=== PATIENT | female | born 1970 | race Caucasian/White ===

== ENCOUNTER 2019-08-11 15:53 | Observation (INO) ==
[2019-08-11] MEDS ORDERED: 0.9 % Sodium Chloride 1,000 ML IVC ONE (16:25)
[2019-08-11] MEDS ORDERED: Ondansetron 4 MG/2 ML VIAL IVP ONE (16:25)
[2019-08-11] MEDS ORDERED: Isovue-370 500 ML BOTTLE IVP ONE (16:36)
[2019-08-11 17:04] LABS: Basophils % 0.3 %; Eosinophils # 0.1 K/mcL (0.0-0.6); Eosinophils % 1.7 %; Hemoglobin 12.6 g/dL (11.5-15.4); Immature Granulocytes % 0.6 % (0-4); Lymphocytes # 1.7 K/mcL (0.6-4.6); Lymphocytes % 25.8 %; Mean Corpuscular HGB Conc 34.1 g/dL (31.6-35.5); Mean Corpuscular Hemoglobin 29.4 pg (28.0-33.3); Mean Corpuscular Volume 86.2 fL (83.0-100.0); Mean Platelet Volume 9.7 fL (9.4-12.4); Monocytes # 0.5 K/mcL (0.0-1.3); Neutrophils # 4.1 K/mcL (1.6-8.9); Platelet Count 261 K/mcL (140-400); Red Blood Count 4.29 M/mcL (3.82-4.97); Red Cell Distribution Width 14.6 % (11.5-14.5); Segmented Neutrophils % 63.6 %; White Blood Count 6.5 K/mcL (4.3-11.1)
[2019-08-11 17:27] LABS: Alanine Aminotransferase 409 Units/L (7-52); Albumin 4.3 g/dL (3.5-5.7); Albumin/Globulin Ratio 1.7 (1.1-2.2); Alkaline Phosphatase 149 Units/L (34-104); Aspartate Amino Transferase 284 Units/L (13-39); BUN/Creatinine Ratio 18 (6-26); Bilirubin,Direct 2.4 mg/dL (0.0-0.2); Bilirubin,Indirect 1.1 mg/dL (0.0-1.0); Bilirubin,Total 3.5 mg/dL (0.3-1.0); Blood Urea Nitrogen 10 mg/dL (6-20); Calcium 9.3 mg/dL (8.6-10.3); Carbon Dioxide 29 mEq/L (23-29); Chloride 105 mEq/L (98-107); Globulin 2.5 g/dL (2.4-3.5); Glucose 127 mg/dL (70-105); Lipase 14 Units/L (11-82); Osmolality,Calculated 287 (280-300); Potassium 3.7 mEq/L (3.5-5.1); Sodium 138 mEq/L (136-145); Total Protein 6.8 g/dL (6.4-8.9); eGFR For African Americans > 60 (> 60); eGFR For Non-African Americans > 60 (> 60)
[2019-08-11 17:48] LABS: Bilirubin,Urine Moderate (Negative); Blood,Urine Negative (Negative); Clarity,Urine Turbid (Clear); Color,Urine Orange (Yellow); Glucose,Urine (UA) Normal (Normal); Ketones,Urine Negative (Negative); Leukocyte Esterase,Urine Small (Negative); Nitrite,Urine Negative (Negative); Protein,Urine Trace mg/dL (Neg-Trace); Specific Gravity,Urine 1.027 (1.010-1.025); Urobilinogen,Urine Normal (Normal)
[2019-08-11 17:51] LABS: Bacteria,Urine None Seen per hpf (None-Few); Hyaline Casts,Urine None Seen per lpf (None-Few)
[2019-08-11 18:08] LABS: RBC,Urine 0-3 per hpf (0-3); Squamous Epithelial Cell,Urine Few per lpf (None-Few)
[2019-08-11 18:09] LABS: Amorphous Sediment,Urine Many per hpf (Few); WBC,Urine 0-3 per hpf (0-3)
[2019-08-11] MEDS ORDERED: *HR* FentaNYL (PF) 100 MCG/2 ML VIAL IVP ONE (19:04)
[2019-08-11] MEDS ORDERED: Naloxone 0.4 MG/ML INJ IVP PRN (19:17)
[2019-08-11] MEDS ORDERED: *HR* OxyCODONE/APAP 5/325 TABLET PO PRN (23:20)
[2019-08-12] MEDS: Ondansetron 4 MG/2 ML VIAL IVP PRN ×3 (00:06→21:02)
[2019-08-12] MEDS ORDERED: Morphine Sulfate 2 MG/ML SYRINGE IVP ONE (00:32)
[2019-08-12 06:26] LABS: Basophils % 0.4 %; Eosinophils # 0.1 K/mcL (0.0-0.6); Eosinophils % 2.8 %; Hematocrit 35.5 % (35.3-44.9); Hemoglobin 11.8 g/dL (11.5-15.4); Immature Granulocytes % 0.6 % (0-4); Lymphocytes # 1.9 K/mcL (0.6-4.6); Lymphocytes % 36.9 %; Mean Corpuscular HGB Conc 33.2 g/dL (31.6-35.5); Mean Corpuscular Hemoglobin 29.9 pg (28.0-33.3); Mean Corpuscular Volume 89.9 fL (83.0-100.0); Mean Platelet Volume 10.2 fL (9.4-12.4); Monocytes # 0.5 K/mcL (0.0-1.3); Neutrophils # 2.5 K/mcL (1.6-8.9); Platelet Count 236 K/mcL (140-400); Red Blood Count 3.95 M/mcL (3.82-4.97); Red Cell Distribution Width 14.7 % (11.5-14.5); Segmented Neutrophils % 50.3 %
[2019-08-12 06:46] LABS: BUN/Creatinine Ratio 12 (6-26); Blood Urea Nitrogen 8 mg/dL (6-20); Calcium 8.5 mg/dL (8.6-10.3); Carbon Dioxide 30 mEq/L (23-29); Chloride 107 mEq/L (98-107); Glucose 114 mg/dL (70-105); Osmolality,Calculated 293 (280-300); Potassium 3.9 mEq/L (3.5-5.1); Sodium 142 mEq/L (136-145); eGFR For African Americans > 60 (> 60); eGFR For Non-African Americans > 60 (> 60)
[2019-08-12] MEDS ORDERED: Ibuprofen 600 MG TABLET PO ONE (08:37)
[2019-08-12 09:12] LABS: Alanine Aminotransferase 422 Units/L (7-52); Albumin 3.9 g/dL (3.5-5.7); Albumin/Globulin Ratio 1.8 (1.1-2.2); Alkaline Phosphatase 167 Units/L (34-104); Aspartate Amino Transferase 235 Units/L (13-39); Bilirubin,Direct 2.9 mg/dL (0.0-0.2); Bilirubin,Indirect 0.7 mg/dL (0.0-1.0); Bilirubin,Total 3.6 mg/dL (0.3-1.0); Globulin 2.2 g/dL (2.4-3.5); Total Protein 6.1 g/dL (6.4-8.9)
[2019-08-12] MEDS ORDERED: 0.9 % Sodium Chloride 1,000 ML ONE (12:29)
[2019-08-12 12:41] LABS: Hepatitis B Surface Antigen Nonreactive (Nonreactive)
[2019-08-12 13:10] LABS: Hepatitis B Core IgM Nonreactive (Nonreactive); Hepatitis C Virus Antibody Nonreactive (Nonreactive)
[2019-08-12 13:12] LABS: Hepatitis A Antibody IgM Nonreactive (Nonreactive)
[2019-08-12] MEDS: 0.9 % Sodium Chloride 1,000 ML IVC SCH (21:06)
[2019-08-13] MEDS: 0.9 % Sodium Chloride 1,000 ML IVC SCH ×2 (03:13→04:02)
[2019-08-13 05:28] LABS: Basophils % 0.3 %; Eosinophils # 0.2 K/mcL (0.0-0.6); Eosinophils % 2.6 %; Hematocrit 34.8 % (35.3-44.9); Hemoglobin 11.6 g/dL (11.5-15.4); Immature Granulocytes % 0.7 % (0-4); Lymphocytes % 33.4 %; Mean Corpuscular HGB Conc 33.3 g/dL (31.6-35.5); Mean Corpuscular Hemoglobin 29.6 pg (28.0-33.3); Mean Corpuscular Volume 88.8 fL (83.0-100.0); Mean Platelet Volume 10.4 fL (9.4-12.4); Monocytes # 0.4 K/mcL (0.0-1.3); Monocytes % 6.8 %; Neutrophils # 3.4 K/mcL (1.6-8.9); Platelet Count 222 K/mcL (140-400); Red Blood Count 3.92 M/mcL (3.82-4.97); Red Cell Distribution Width 14.6 % (11.5-14.5); Segmented Neutrophils % 56.2 %
[2019-08-13 05:41] LABS: Alanine Aminotransferase 398 Units/L (7-52); Albumin 3.9 g/dL (3.5-5.7); Albumin/Globulin Ratio 1.7 (1.1-2.2); Alkaline Phosphatase 187 Units/L (34-104); Aspartate Amino Transferase 158 Units/L (13-39); BUN/Creatinine Ratio 11 (6-26); Bilirubin,Total 2.5 mg/dL (0.3-1.0); Blood Urea Nitrogen 6 mg/dL (6-20); Calcium 8.6 mg/dL (8.6-10.3); Carbon Dioxide 26 mEq/L (23-29); Chloride 107 mEq/L (98-107); Globulin 2.3 g/dL (2.4-3.5); Glucose 106 mg/dL (70-105); Osmolality,Calculated 290 (280-300); Phosphorous 2.7 mg/dL (2.7-4.5); Potassium 3.8 mEq/L (3.5-5.1); Sodium 141 mEq/L (136-145); Total Protein 6.2 g/dL (6.4-8.9); eGFR For African Americans > 60 (> 60); eGFR For Non-African Americans > 60 (> 60)
[2019-08-13 11:16] VITALS: BP 143/75
[2019-08-14 13:35] LABS: AFP Tumor Marker Non-Pregnant 4 ng/mL (0-9)
[2019-08-15 10:48] LABS: Serine Protease-3 Antibody 5 AU/mL (0-19)
[2019-08-15 10:54] LABS: ANA IgG by ELISA NONE DETECTED (None Detected); F-Actin (sm muscle) Ab IgG 4 Units (0-19)
== END 2019-08-13 13:55 | disposition home or self-care (01) ==
LOC: EMEROOARM 15:53 → 3BNU 15:53 → SUATTDRO 19:06 → 3BNU 19:39
PROVIDERS: ADMIT Student in an Organized Health Care Education/Training Program; ATTEND Internal Medicine